=== PATIENT | male | born 1950 | race Caucasian/White ===

== ENCOUNTER 2023-01-04 10:26 | Emergency (ER) | payer MEDICARE ==
[2023-01-04 11:29] VITALS: BP 161/90
[2023-01-04] MEDS ORDERED: HYDROmorphone 1 MG/ML CARPUJECT IM STA (13:12)
--- NOTE | 2023-01-04 13:15 | ED Physician Documentation ---
History of Present Illness - Stated complaint Stated Complaint: LEG/BACK PX - Chief complaint Chief Complaint: Ext Problem - Additonal information Additional information: 72-year-old male presents emergency department for evaluation of acute left low back pain and leg pain. Symptoms began on Wednesday after [place] [facility] [place] He been sitting for many hours. But prior to that he had also been needing dough for about 5 hours while standing. He does have a history of low back pain and simple exacerbations but nothing that he could never resolve with yzrq-[id number]-[id number] medications. He did see his PCP on and was prescribed methylprednisolone and despite this continues to have pain. Yesterday he took some leftover hydrocodone with some improvement of pain but no resolution. He placed an ice pack on his left buttock yesterday to help with the pain and now has an associated freezer burn. Pain does radiate down the mid thigh. He is concerned because he was told he could possibly have a DVT in this leg as he had one several years ago after an Achilles tendon injury. Not currently anticoagulated. No saddle anesthesia, loss of bowel or bladder function. No history of cancer. No falls or trauma. Review of Systems Constitutional: denies: Fever, Chills Musculoskeletal: reports: Back pain, Extremity pain PD PAST MEDICAL HISTORY - Present Medications Home Medications: Ambulatory Orders Medication Instructions Recorded Confirmed oxyCODONE [Roxicodone] 5 mg PO BID #10 tablet 01/04/23 - Allergies Allergies/Adverse Reactions: Allergies Allergy/AdvReac Type Severity Reaction Status Date / Time No Known Drug Allergies Allergy Verified 01/04/23 11:25 PD ED PE NORMAL - General General: Alert and oriented X 3. No: No acute distress (Appears uncomfortable and in pain preferring to lay on his stomach.) - Cardiac Cardiac: RRR, No murmur - Abdomen Abdomen: Normal bowel sounds, Soft, Non tender, Non distended - Back Back: No CVA TTP, No spinal TTP (No tenderness elicited with palpation of the thoracic or lumbar spine. Some moderate tenderness was elicited over the left SI joint. Negative straight leg on the left. There is evidence of a cold burn injury to the left buttock. Motor strength is 5 of 5. No paresthesias.) - Derm Derm: Normal color, Warm and dry, No rash - Extremities Extremities: No deformity. 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 Eye Opening: Spontaneous Motor: Obeys Commands Verbal: Oriented GCS Score: 15 Results - Vitals Vitals: Vital Signs - 24 hr 01/04/23 11:21 Temperature 36.8 C Heart Rate 91 Respiratory 20 Rate Blood Pressure 161/90 H O2 Saturation 96 Oxygen O2 Source Room air - Rads (name of study) US DVT left leg Relevant Findings:: Final report received (No evidence of deep vein thrombosis in the left lower extremity) PD Medical Decision Making - ED course Complexity details: reviewed results, re-evaluated patient, d/w patient ED course: 72-year-old male presents emergency department for evaluation of several days of left lower back and leg pain that began after driving from [facility] back to [facility]. He had been sitting for 78 hours in the car. He also reports that previous to that he had been needing go for about 5 hours straight while standing. No red flags for back pain on exam with the exception of his age. He has no saddle anesthesia, loss of bowel or bladder function. Clinically the exam is most consistent with what I believed to either be a sciatica or meralgia paresthetica. Patient was seen by his PCP on and started on a Medrol Dosepak but has not found that helpful. He did take some leftover hydrocodone which was also helpful. Patient was concerned that the symptoms could be due to a DVT given a history of DVT in this leg after Achilles injury several years ago. An ultrasound today as interpreted by the radiologist showed no evidence of deep vein thrombosis. I discussed with patient routine conservative management of what appears to be a nerve inflammation. I made the recommendation to continue the Medrol Dosepak. Once that is completed he should continue with Tylenol or begin taking ibuprofen with food 2-3 times a day. If the flare is not markedly better he would benefit from referral to physical therapy or consideration of MRI or even referral to back pain specialist. Patient has found marked relief of his symptoms after dose of Dilaudid and given this he will be prescribed a very limited amount of oxycodone. He is aware that we will not be able to refill it under any conditions. Clinically patient does not have symptoms of cauda equina or spinal epidural abscess. He is discharged home in stable condition with usual emergent return precautions discussed for worsening symptoms. I am prescribing a short course of short-acting opioid pain medication for this patient. 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 I have discussed that the opioids are for short term therapy only, and will not be refilled from the ED. Departure - Departure Disposition: 01 Home, Self Care Clinical Impression: Sciatica Qualifiers: Laterality: left Qualified Code(s): M54.32 - Sciatica, left side Condition: Stable Record reviewed to determine appropriate education?: Yes Instructions: ED Sciatica Prescriptions: oxyCODONE [Roxicodone] 5 mg PO BID #10 tablet Comments: Scott austin were seen today in the emergency department for evaluation of pain in your left low back radiating down your leg. 9 as discussed I suspect your condition is either sciatica and inflammation of the sciatic nerve that runs in the low back or even possibly meralgia paresthetica, this is due to inflammation of the nerve that arises from the lower spine and wraps around the thigh. Please continue to finish the Medrol Dose pack that you are taking. Once you finish that steroid pack you can begin taking ibuprofen 600 mg with food 2-3 times a day. I do recommend that you take Tylenol 500 mg with food 3 times a day. Please follow very closely with your primary care doctor. If despite this treatment you are not having marked improvement in your symptoms you may benefit from referral to physical therapy, consideration of an MRI or even consideration of referral to a back pain specialist. For the more severe pain I have ordered a very limited prescription of oxycodone and sent it to the [facility] in [place]. This cannot be refilled in the future from the emergency department. I do recommend that you use a walker to ambulate until your back pain is better as I fear that falling could make your symptoms much worse. Return to the ER if you develop any numbness in your genital area, lose control of your bowel or bladder function. I am prescribing a short course of narcotic pain medication for you. These are potentially dangerous and addictive medications that should be used carefully. These medications may constipate you. Take an nslb-odm-saqsljf stool softener (docusate) twice daily with plenty of water while taking these medications. If you go 24 hours without a bowel movement, take xihe-vrb-dsezxxm miralax, per package instructions. Do not drink or drive while taking these medications. If you received narcotic or sedating medications while in the emergency department, do not drive for 24 hours. Store this medication in a safe, secure place and out of reach of children. It is a violation of federal law to give or sell this medication to another person or to use in a manner other than prescribed. The ED will not refill narcotic prescriptions, including prescriptions lost or stolen. To dispose of unwanted medications: 1. [facility] at [address] in [place] has a medication drop box. They accept prescription medications (in pill form) Wednesday through Wednesday 9:00 a.m. to 5:00 p.m. 2. The [facility] [employer] accepts prescription medications (in pill form only) for disposal year round. Call for more information. 3. Contact the [facility] for the next [facility] sponsored prescription drug collection event. , [phone], or [phone]; Note that many narcotic pain relievers also contain Tylenol/acetaminophen. Please ensure that your total dose of acetaminophen from all sources does not exceed 3 g (3000 mg) per day. Forms: PCP List
--- NOTE | 2023-01-04 15:29 | Ultrasound Report ---
PROCEDURE: Duplex Ext Veins Left INDICATIONS: left lef pain; hx of dvt TECHNIQUE: Real-time imaging, as well as color and pulse Doppler interrogation, were performed of the lower extr emity deep veins from the inguinal ligament to the popliteal fossa. COMPARISON: None. FINDINGS: The deep veins are normally compressible, and free of intraluminal thrombus. Color and pu lse Doppler demonstrate normal phasic intraluminal flow. There is normal augmentation response to di stal compression maneuver. IMPRESSION: 1. No DVT in the left lower extremity. 2. Preliminary results given by the rn clinician to the ordering provider immediately following the st udy. Reviewed by: Leyla Metcalf MD on 01/04/2023 3:28 PM PDT Approved by: Leyla Metcalf MD on 01/04/2023 3:28 PM PDT Station ID: [id number]
== END 2023-01-04 15:19 | disposition home or self-care (01) ==
LOC: ED 10:26
DX: M54.32 Sciatica, left side (principal)
CPT/HCPCS: 93971; 96372; 99283; 99284; J1170